=== PATIENT | female | born 1945 | race American Indian/Alaskan Native ===

== ENCOUNTER 2019-03-10 07:49 | Inpatient (IN) | payer MEDICARE, OTHER ==
[2019-03-03 16:42] LABS: BASOPHILS # (AUTO) 0.1 X10'3 (0-0.2); BASOPHILS % (AUTO) 0.7 % (0-1); EOSINOPHILS # (AUTO) 0.1 X10'3 (0-0.9); EOSINOPHILS % (AUTO) 1.1 % (0-6); LYMPHOCYTES # (AUTO) 1.6 X10'3 (1.1-4.8); MEAN CORPUSCULAR HEMOGLOBIN 30.5 PG (27.0-31.0); MEAN CORPUSCULAR HGB CONC 34.2 g/dL (33.0-36.5); MEAN CORPUSCULAR VOLUME 89.1 FL (78-98); MEAN PLATELET VOLUME 9.2 FL (7.4-10.4); MONOCYTES # (AUTO) 0.6 X10'3 (0-0.9); MONOCYTES % (AUTO) 7.7 % (2-12); NEUTROPHILS # (AUTO) 5.4 X10'3 (1.8-7.7); NEUTROPHILS % (AUTO) 69.5 % (42-75); PRE OP PLATELET COUNT 198 X10'3 (140-440); RED BLOOD COUNT 4.61 X10'6 (4.20-5.60); RED CELL DISTRIBUTION WIDTH 13.8 % (11.5-14.5)
[2019-03-03 17:07] LABS: ALBUMIN 3.8 G/DL (3.4-5.0); ALBUMIN/GLOBULIN RATIO 1.1 (1.1-1.5); ALKALINE PHOSPHATASE 111 IU/L (46-116); BLOOD UREA NITROGEN 22 MG/DL (7-18); BUN/CREATININE RATIO 30.6 (6.6-38.0); CALCIUM 8.5 MG/DL (8.5-10.1); CHLORIDE 112 MMOL/L (99-107); CREATININE 0.72 MG/DL (0.40-0.90); PRE OP ALT 21 U/L (30-65); PRE OP ANION GAP 8 (8-16); PRE OP AST 9 U/L (10-37); PRE OP BILIRUB, TOTAL 0.3 MG/DL (0.0-1.0); PRE OP GLUCOSE 125 MG/DL (70-104); PRE OP POTASSIUM 3.5 MMOL/L (3.4-5.1); PRE OP SODIUM 143 MMOL/L (135-145); TOTAL PROTEIN 7.2 G/DL (6.4-8.2); eGFR 79 ML/MIN
[2019-03-03 17:18] LABS: PRE OP INR < 0.9 INR; PRE OP PARTIAL THROMB. TIME 24 SECONDS (22-32); PRE OP PROTIME 9.8 SECONDS (9.0-12.0)
[~2019-03-10] VITALS: Ht 152.4 cm; Wt 84.8 kg
[2019-03-10] VITALS (28 sets, daily range): BP systolic 93–151; BP diastolic 49–70
[~2019-03-10 07:49] MED LIST: DOCU100C41 PO; FESO8TAB PO; LEVO100T PO; MULT-955 PO; NAPR220T67 PO; acetaminophen 325mg tablet PO ONE; cefazolin/dext.iso 2gm/50ml 50 ML IV ONE; celeCOXIB 100mg capsule PO ONE; famotidine 20mg tablet PO ONE; gabapentin 300mg capsule PO ONE; metoclopramide 5 mg/ml inj IV ONE; oxyCODONE SR 10mg (sust. release) tab -2 tabs (20mg) PO ONE; ringers solution, lacted 1,000 ML IV SCH; tranexamic acid inj. 1,000 MG in normal saline 100 ML IV ONE; vancomycin inj 1,500 MG in normal saline 300ml IV soln IV ONE
[2019-03-10] MEDS ORDERED: LIDOcaine 1% (10mg/ml) 2ml vial ONE (08:48)
[2019-03-10] MEDS ORDERED: epiNEPHrine 1 mg/ml inj ONE (09:17)
[2019-03-10] MEDS ORDERED: ketorolac trometh. 30mg/ml inj. ONE (09:17)
[2019-03-10] MEDS ORDERED: vancomycin 1,000mg inj ONE (09:17)
[2019-03-10] MEDS ORDERED: cloNIDine hcl/PF 100mcg/ml inj ONE (09:17)
[2019-03-10] MEDS ORDERED: ROPIVAcaine 0.5% (5mg/ml) 30ml vial ONE ×2 (09:18→12:20)
[2019-03-10] MEDS ORDERED: ondansetron/PF 4mg/2ml inj IV PRN ×3 (10:00→11:45)
[2019-03-10] MEDS ORDERED: meperidine/PF 25mg/ml syringe IV PRN ×6 (10:00→11:45)
[2019-03-10] MEDS ORDERED: proCHLORperazine 10 MG/2 ml inj IV PRN ×2 (10:00→11:45)
[2019-03-10] MEDS ORDERED: ringers solution, lacted 1,000 ML IV SCH ×2 (10:00→11:43)
[2019-03-10] MEDS ORDERED: tetracaine 1% (10mg/ml) pres. free inj. ONE (10:35)
[2019-03-10] MEDS ORDERED: bisacodyl 10mg suppository rectal RC PRN (10:40)
[2019-03-10] MEDS ORDERED: oxyCODONE/APAP 10/325mg tablet PO PRN (10:40)
[2019-03-10] MEDS ORDERED: magnesium hydroxide 30ml (MOM) UD suspension PO PRN (10:40)
[2019-03-10] MEDS ORDERED: HYDROmorphone 1 mg/ml syringe IV PRN (10:40)
[2019-03-10] MEDS ORDERED: HYDROmorphone inj. 0.5 MG/0.5 ML DISP.SYRIN IV PRN (10:40)
[2019-03-10] MEDS ORDERED: diphenhydrAMINE 25mg capsule PO PRN ×2 (10:40)
[2019-03-10] MEDS ORDERED: fentaNYL/PF 50MCG/1 ML 2ML syringe ONE (10:43)
[2019-03-10] MEDS ORDERED: MIDAZolam 5mg/5ml vial ONE (10:43)
[2019-03-10] MEDS ORDERED: propofol inj 20 ML IV ONE (11:15)
--- NOTE | 2019-03-10 12:45 | NUR ---
Received from OR via BED, accompanied by Anesthesiologist DR GOULD and report given by Anesthesiologist. PT DROWSY, DENIES PAIN, RIGHT KNEE W/DRSG, LEG WRAP, ICE PACK, TOM DRAIN W/GREEN LIGHT ILLUMINATION, ACB CATHETER, CDI. IRIZARRY CATHETER TO GRAVITY DRAINAGE W/DARK YELLOW URINE IN DRAINAGE TUBING. DERMATOME LEVEL L-1. Addendum: 03/10/19 at 1413 by Caro Lara RN Amended: Links added.
[2019-03-10] MEDS: ROPIVAcaine 0.2%/PF PAIN PUMP 550 ML IJ SCH (14:20)
--- NOTE | 2019-03-10 14:45 | NUR ---
Report called to receiving nurse. Transferred via BED, 1 BAG OF PERSONAL Belongings SENT W/PT TO ROOM 4024A, RECEIVING RN AT BEDSIDE TO RECEIVE PT, BLL, CALL LIGHT GIVEN, SIDE RAILS UP X 2. Special Issues communicated to receiving nurse. YES. Addendum: 03/10/19 at 1459 by Caro Lara RN Amended: Links added.
--- NOTE | 2019-03-10 15:07 | NUR ---
pt arrived room Recovery s/p right knee replacement. Report obtained from GARY Elizondo. Pt oriented to room. Ropivacaine pump running at 4. Pt denies pain at this time. alert and oriented.
[2019-03-10] MEDS ORDERED: tranexamic acid inj. 850 MG in normal saline 100ml IV soln 100 ML IV ONE (15:45)
[2019-03-10] MEDS: potassium cl 20mEq in 1/2 NS 1,000 ML IV SCH ×2 (16:42→18:37)
[2019-03-10] MEDS: cefazolin/dext.iso 2gm/50ml 50 ML IV SCH (16:50)
[2019-03-10] MEDS: sennosides 8.6mg tablet PO SCH (20:52)
[2019-03-10] MEDS: oxybutynin 5mg tablet PO SCH (20:52)
[2019-03-10] MEDS: ascorbic acid 500mg tablet PO SCH (20:53)
[2019-03-10] MEDS: gabapentin 300mg capsule PO SCH (20:53)
[2019-03-10] MEDS: oxyCODONE/APAP 10/325mg tablet PO PRN (20:59)
[2019-03-11] MEDS: cefazolin/dext.iso 2gm/50ml 50 ML IV SCH ×2 (00:13→08:11)
[2019-03-11 02:00] VITALS: BP 135/62
[2019-03-11] MEDS: oxyCODONE/APAP 10/325mg tablet PO PRN ×2 (02:02→02:58)
[2019-03-11] MEDS: potassium cl 20mEq in 1/2 NS 1,000 ML IV SCH ×3 (03:05→18:37)
--- NOTE | 2019-03-11 05:46 | NUR ---
Nixon catheter DC'd, pt tolerated well.
[2019-03-11 05:53] LABS: BASOPHILS % (AUTO) 0.4 % (0-1); EOSINOPHILS # (AUTO) 0.1 X10'3 (0-0.9); EOSINOPHILS % (AUTO) 1.2 % (0-6); HEMATOCRIT 35.1 % (35.0-45.0); HEMOGLOBIN 12.2 g/dl (12.0-16.0); LYMPHOCYTES # (AUTO) 0.6 X10'3 (1.1-4.8); LYMPHOCYTES % (AUTO) 8.1 % (21-51); MEAN CORPUSCULAR HEMOGLOBIN 31.1 PG (27.0-31.0); MEAN CORPUSCULAR HGB CONC 34.8 g/dL (33.0-36.5); MEAN CORPUSCULAR VOLUME 89.2 FL (78-98); MEAN PLATELET VOLUME 8.9 FL (7.4-10.4); MONOCYTES # (AUTO) 0.6 X10'3 (0-0.9); MONOCYTES % (AUTO) 8.1 % (2-12); NEUTROPHILS # (AUTO) 6.5 X10'3 (1.8-7.7); NEUTROPHILS % (AUTO) 82.2 % (42-75); PLATELET COUNT 149 X10'3 (140-440); RED BLOOD COUNT 3.94 X10'6 (4.20-5.60); RED CELL DISTRIBUTION WIDTH 13.7 % (11.5-14.5); WHITE BLOOD COUNT 7.9 X10'3 (4.5-11.0)
--- NOTE | 2019-03-11 06:00 | NUR ---
Report given to millie Valentine.
[2019-03-11 06:10] LABS: ANION GAP 11 (8-16); CHLORIDE 106 MMOL/L (99-107); POTASSIUM 4.3 MMOL/L (3.5-5.1); SODIUM 138 MMOL/L (135-145)
[2019-03-11 07:09] VITALS: BP 125/62
[2019-03-11] MEDS ORDERED: FESOTERODINE FUMARATE 8 MG PO SCH (08:00)
[2019-03-11] MEDS: levoTHYROXINE 100mcg tablet PO SCH (08:05)
[2019-03-11] MEDS: multivitamins, therapeutics tablet PO SCH (08:06)
[2019-03-11] MEDS: oxybutynin 5mg tablet PO SCH ×3 (08:06→20:23)
[2019-03-11] MEDS: gabapentin 300mg capsule PO SCH ×3 (08:08→20:23)
[2019-03-11] MEDS: ascorbic acid 500mg tablet PO SCH ×2 (08:08→20:23)
[2019-03-11] MEDS: aspirin 325mg tablet PO SCH (08:09)
[2019-03-11] MEDS ORDERED: HYDROcodone/acetaminophen 5mg/325mg tablet PO PRN (09:50)
[2019-03-11] MEDS ORDERED: HYDROcodone/acetaminophen 10/325mg tab PO PRN (09:50)
--- NOTE | 2019-03-11 12:00 | NUR ---
Student documentation: I have reviewed all interventions, assessments performed and documented by Wayne Bass . Student Medication Administration: For this medication-pass time frame, all medication were reviewed, dispensed, administered and documented per hospital policy by Christina Bass.
[2019-03-11 14:00] VITALS: BP 152/67
--- NOTE | 2019-03-11 17:32 | NUR ---
Joint consult: Pt being seen by multiple RN's during RD attempt to visit. Will need high protein ed once stable prior to d/c post-op. Addendum: 03/11/19 at [address] Amended: Links added.
[2019-03-11 18:00] VITALS: BP 158/60
[2019-03-11] MEDS: acetaminophen 325mg tablet PO PRN (20:23)
[2019-03-11] MEDS: celeCOXIB 100mg capsule PO SCH (20:23)
[2019-03-11] MEDS: sennosides 8.6mg tablet PO SCH (21:00)
--- NOTE | 2019-03-11 21:50 | NUR ---
decresased onQ to 10 while patient sleeping.
[2019-03-11 22:00] VITALS: BP 146/61
[2019-03-12] MEDS: potassium cl 20mEq in 1/2 NS 1,000 ML IV SCH (02:37)
[2019-03-12 05:26] LABS: BASOPHILS % (AUTO) 0.2 % (0-1); EOSINOPHILS % (AUTO) 0.3 % (0-6); HEMATOCRIT 36.1 % (35.0-45.0); HEMOGLOBIN 12.4 g/dl (12.0-16.0); LYMPHOCYTES # (AUTO) 0.6 X10'3 (1.1-4.8); LYMPHOCYTES % (AUTO) 6.5 % (21-51); MEAN CORPUSCULAR HEMOGLOBIN 30.7 PG (27.0-31.0); MEAN CORPUSCULAR HGB CONC 34.4 g/dL (33.0-36.5); MEAN CORPUSCULAR VOLUME 89.4 FL (78-98); MEAN PLATELET VOLUME 9.2 FL (7.4-10.4); MONOCYTES % (AUTO) 11.1 % (2-12); NEUTROPHILS # (AUTO) 7.7 X10'3 (1.8-7.7); NEUTROPHILS % (AUTO) 81.9 % (42-75); PLATELET COUNT 152 X10'3 (140-440); RED BLOOD COUNT 4.04 X10'6 (4.20-5.60); RED CELL DISTRIBUTION WIDTH 13.5 % (11.5-14.5); WHITE BLOOD COUNT 9.4 X10'3 (4.5-11.0)
[2019-03-12] MEDS: acetaminophen 325mg tablet PO PRN ×2 (05:41→20:23)
[2019-03-12 06:00] VITALS: BP 143/67
--- NOTE | 2019-03-12 06:15 | NUR ---
Patient in room ORTHO 4024. I have received report from Zoe and had the opportunity to ask questions and assume patient care.
[2019-03-12] MEDS ORDERED: ondansetron 4mg rapidly disintigrating tab PO PRN (06:35)
--- NOTE | 2019-03-12 06:39 | NUR ---
reported to days. encrouaged PO intake. took jello and tylenol this am.
[2019-03-12] MEDS: celeCOXIB 100mg capsule PO SCH ×2 (08:18→20:23)
[2019-03-12] MEDS: oxybutynin 5mg tablet PO SCH ×3 (08:19→20:24)
[2019-03-12] MEDS: multivitamins, therapeutics tablet PO SCH (08:20)
[2019-03-12] MEDS: gabapentin 300mg capsule PO SCH ×3 (08:20→20:23)
[2019-03-12] MEDS: levoTHYROXINE 100mcg tablet PO SCH (08:20)
[2019-03-12] MEDS: ascorbic acid 500mg tablet PO SCH ×2 (08:21→20:24)
[2019-03-12] MEDS: aspirin 325mg tablet PO SCH (08:22)
[2019-03-12 10:00] VITALS: BP 139/61
[2019-03-12 11:12] VITALS: BP 145/63
[2019-03-12] MEDS: ROPIVAcaine 0.2%/PF PAIN PUMP 550 ML IJ SCH ×2 (11:43→17:17)
--- NOTE | 2019-03-12 12:00 | NUR ---
Student documentation: I have reviewed all interventions, assessments performed and documented by Guera Bass. Student Medication Administration: For this medication-pass time frame, all medication were reviewed, dispensed, administered and documented per hospital policy by Guera Bass.
--- NOTE | 2019-03-12 15:07 | NUR ---
F/u: Pt seen by RD for written/verbal high protein ed w/ RD contact information provided. Pt agrees to cottage cheese w/ fruit TIDWM in addition to salt and pepper w/ it; dietary notified. PO 25% avg meals likely r/t persistent nausea. LBM 03/10. Will monitor for additional protein needs post-op. Addendum: 03/12/19 at [address] Amended: Links added.
[2019-03-12 18:00] VITALS: BP 129/79
--- NOTE | 2019-03-12 18:21 | NUR ---
Problems reprioritized. Patient report given, questions answered & plan of care reviewed with Radha.
--- NOTE | 2019-03-12 18:30 | NUR ---
Patient in room ORTHO 4024. I have received report from GARY Baker and had the opportunity to ask questions and assume patient care.
[2019-03-12] MEDS: sennosides 8.6mg tablet PO SCH (20:24)
[2019-03-12 22:00] VITALS: BP 138/53
[2019-03-13 06:00] VITALS: BP 121/56
--- NOTE | 2019-03-13 06:15 | NUR ---
Problems reprioritized. Patient report given, questions answered & plan of care reviewed with GARY Baker.
[2019-03-13 07:17] LABS: BASOPHILS % (AUTO) 0.3 % (0-1); EOSINOPHILS # (AUTO) 0.1 X10'3 (0-0.9); EOSINOPHILS % (AUTO) 1.5 % (0-6); HEMATOCRIT 32.9 % (35.0-45.0); HEMOGLOBIN 11.5 g/dl (12.0-16.0); LYMPHOCYTES # (AUTO) 1.1 X10'3 (1.1-4.8); LYMPHOCYTES % (AUTO) 13.1 % (21-51); MEAN CORPUSCULAR HEMOGLOBIN 31.1 PG (27.0-31.0); MEAN CORPUSCULAR HGB CONC 35.1 g/dL (33.0-36.5); MEAN CORPUSCULAR VOLUME 88.7 FL (78-98); MEAN PLATELET VOLUME 9.2 FL (7.4-10.4); MONOCYTES # (AUTO) 0.8 X10'3 (0-0.9); MONOCYTES % (AUTO) 9.7 % (2-12); NEUTROPHILS # (AUTO) 6.5 X10'3 (1.8-7.7); NEUTROPHILS % (AUTO) 75.4 % (42-75); PLATELET COUNT 164 X10'3 (140-440); RED BLOOD COUNT 3.71 X10'6 (4.20-5.60); RED CELL DISTRIBUTION WIDTH 13.8 % (11.5-14.5); WHITE BLOOD COUNT 8.6 X10'3 (4.5-11.0)
[2019-03-13] MEDS: celeCOXIB 100mg capsule PO SCH (09:05)
[2019-03-13] MEDS: oxybutynin 5mg tablet PO SCH (09:07)
[2019-03-13] MEDS: gabapentin 300mg capsule PO SCH (09:07)
[2019-03-13] MEDS: multivitamins, therapeutics tablet PO SCH (09:08)
[2019-03-13] MEDS: levoTHYROXINE 100mcg tablet PO SCH (09:08)
[2019-03-13] MEDS: ascorbic acid 500mg tablet PO SCH (09:09)
[2019-03-13] MEDS: aspirin 325mg tablet PO SCH (09:09)
[2019-03-13 10:00] VITALS: BP 128/68
--- NOTE | 2019-03-13 14:50 | NUR ---
Reviewed discharge instructions with pt and daughter. Pt verbalized understanding. Pt is alert, oriented and does not have c/o pain or discomfort at this time. All of pt's belongings were returned to pt. Pt was wheeled downstairs to be driven home by her daughter.
== END 2019-03-13 13:50 | disposition home or self-care (01) | DRG 470 ==
LOC: PAS IN 07:49 → EDSTATUS 11:45 → ORTHO 4S 14:45
PROVIDERS: ADMIT Orthopaedic Surgery; ATTEND Orthopaedic Surgery
PROC: 3E0T3BZ Introduction of Anesthetic Agent into Peripheral Nerves and Plexi, Percutaneous Approach (ICD-10-PCS; 2019-03-10)
PROC: 0SRC069 Replacement of Right Knee Joint with Oxidized Zirconium on Polyethylene Synthetic Substitute, Cemented, Open Approach (ICD-10-PCS; principal; 2019-03-10 10:43)
DX: M17.11 Unilateral primary osteoarthritis, right knee (principal); E03.9 Hypothyroidism, unspecified; F17.210 Nicotine dependence, cigarettes, uncomplicated; M70.51 Other bursitis of knee, right knee; E66.9 Obesity, unspecified; N32.81 Overactive bladder; Z88.5 Allergy status to narcotic agent; Z68.36 Body mass index [BMI] 36.0-36.9, adult; Z90.10 Acquired absence of unspecified breast and nipple; Z80.9 Family history of malignant neoplasm, unspecified; Z79.890 Hormone replacement therapy
CPT/HCPCS: 36415; 71046; 73560; 80051; 80053; 82948; 84443; 85025; 85610; 85730; 86885; 86900; 86901; 87081; 93005; 97110; 97112; 97116; 97161; 97530; A4215; A6454; A7000; C1713; C1758; C1776; G0378; J0171; J0735; J1885; J2001; J2250; J2405; J2704; J2765; J2795; J3010; J3370; J3480; J7120

== ENCOUNTER 2019-03-16 18:30 | Emergency (ER) | payer MEDICARE, OTHER ==
[~2019-03-16] VITALS: Ht 152.4 cm; Wt 84.9 kg
[~2019-03-16 18:30] MED LIST changes: -acetaminophen 325mg tablet PO ONE; -cefazolin/dext.iso 2gm/50ml 50 ML IV ONE; -celeCOXIB 100mg capsule PO ONE; -famotidine 20mg tablet PO ONE; -gabapentin 300mg capsule PO ONE; -metoclopramide 5 mg/ml inj IV ONE; -oxyCODONE SR 10mg (sust. release) tab -2 tabs (20mg) PO ONE; -ringers solution, lacted 1,000 ML IV SCH; -tranexamic acid inj. 1,000 MG in normal saline 100 ML IV ONE; -vancomycin inj 1,500 MG in normal saline 300ml IV soln IV ONE
--- NOTE | 2019-03-16 22:33 | NUR ---
distribution field technician at bedside for vascular study.
[2019-03-16 23:22] VITALS: BP 149/69
== END 2019-03-16 23:27 | disposition home or self-care (01) ==
LOC: ER 18:30
DX: M79.651 Pain in right thigh (principal); M25.561 Pain in right knee; E03.9 Hypothyroidism, unspecified; M19.90 Unspecified osteoarthritis, unspecified site; Z96.651 Presence of right artificial knee joint; Z90.49 Acquired absence of other specified parts of digestive tract; Z90.710 Acquired absence of both cervix and uterus; Z98.890 Other specified postprocedural states; Z88.5 Allergy status to narcotic agent; Z79.899 Other long term (current) drug therapy
CPT/HCPCS: 93971; 99284